=== PATIENT | female | born 1955 | race Caucasian/White ===

== ENCOUNTER 2019-08-24 10:10 | Emergency (ER) | payer MEDICARE ==
--- NOTE | 2019-08-24 11:11 | EDM.PDOC ---
ED HPI GENERAL MEDICAL PROBLEM - General Chief Complaint: Fever Stated Complaint: FLU?? PAST THREE DAYS Time Seen by Provider: 08/24/19 11:00 Source of Information: Reports: Patient History Limitations: Reports: No Limitations - History of Present Illness INITIAL COMMENTS - FREE TEXT/NARRATIVE: 63-year-old female who was last well 4 days ago, for 48 hours she had shaking chills, generalized body aches and a persistent headache. She thought she should be getting significantly better by today on the fourth day, but she still has a persistent cough and nasal congestion so came in to be checked. Still intermittent fevers, no significant nausea or vomiting, no diarrhea. She has a scratchy throat and some ear pressure, however her main symptoms are still cough, headache, generalized body aches and intermittent fever. Rhinitis is getting worse today. Onset: Gradual Duration: Day(s): (4 days) Associated Symptoms: Reports: Chest Pain (From coughing), Cough, Fever/Chills, Headaches, Loss of Appetite, Malaise, Shortness of Breath. Denies: Confusion - Related Data Allergies Allergy/AdvReac Type Severity Reaction Status Date / Time No Known Allergies Allergy Verified 08/24/19 10:30 Home Meds: Home Meds Acetaminophen [Tylenol] 325 mg PO Q6H PRN 08/24/19 [History] Albuterol [Ventolin HFA] 1 inh INH ASDIRECTED PRN 08/24/19 [History] Cholecalciferol (Vitamin D3) [Vitamin D3] 1,000 unit PO DAILY 08/24/19 [History] Diltiazem [Diltiazem XR] 180 mg PO DAILY 08/24/19 [History] Estradiol [Estrace] 0.5 mg PO DAILY 08/24/19 [History] FLUoxetine HCl [Prozac] 20 mg PO BEDTIME 08/24/19 [History] FLUoxetine HCl [Prozac] 40 mg PO DAILY 08/24/19 [History] LORazepam [Ativan] 1 mg PO ASDIRECTED 08/24/19 [History] Montelukast [Singulair] 10 mg PO DAILY 08/24/19 [History] Umeclidinium Brm/Vilanterol Tr [Anoro Ellipta 62.5-25 MCG] 1 each IH DAILY 08/24 [History] Zolpidem [Ambien] 10 mg PO BEDTIME PRN 08/24/19 [History] atorvaSTATin [Lipitor] 20 mg PO BEDTIME 08/24/19 [History] busPIRone [Buspar] 10 mg PO BID 08/24/19 [History] polyethylene glycoL 3350 [MiraLAX] 17 gm PO ASDIRECTED PRN 08/24/19 [History] Past Medical History Cardiovascular History: Reports: Hypertension Respiratory History: Reports: COPD, PE Gastrointestinal History: Reports: Colon Polyp, GERD 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, 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: Psychiatric History: Reports: Anxiety, Panic Attack - Past Surgical History GI Surgical History: Reports: Cholecystectomy Female Surgical History: Reports: Hysterectomy Social & Family History - Tobacco Use Smoking Status *Q: Former Smoker Used Tobacco, but Quit: Yes Month/Year Tobacco Last Used: 2006 - Caffeine Use Caffeine Use: Reports: Coffee - Recreational Drug Use Recreational Drug Use: No ED ROS GENERAL - Review of Systems Review Of Systems: See Below Constitutional: Reports: Fever, Chills, Malaise HEENT: Reports: Ear Pain, Rhinitis, Throat Pain Respiratory: Reports: Shortness of Breath, Cough. Denies: Sputum Cardiovascular: Reports: Chest Pain (From coughing) GI/Abdominal: Denies: Diarrhea, Nausea, Vomiting Skin: Reports: No Symptoms Neurological: Reports: Headache Psychiatric: Reports: No Symptoms ED EXAM, GENERAL - Physical Exam Exam: See Below Exam Limited By: No Limitations General Appearance: Alert, No Apparent Distress Eye Exam: Bilateral Eye: Normal Inspection Ears: Normal TMs Throat/Mouth: Normal Inspection Head: Atraumatic Neck: No: Lymphadenopathy (R), Lymphadenopathy (L) Respiratory/Chest: No Respiratory Distress, Other (A few expiratory wheezes are heard with coughing, otherwise good air movement and normal breath sounds with normal respirations) Cardiovascular: Regular Rate, Rhythm, Tachycardia (Mild tachycardia) Neurological: Alert, Oriented Psychiatric: Normal Affect, Normal Mood Skin Exam: Warm, Dry Course - Vital Signs Last Recorded V/S: Last Vital Signs Temp 100.7 F H 08/24/19 10:44 Pulse 105 H 08/24/19 10:44 Resp 18 08/24/19 10:44 BP 129/64 08/24/19 10:44 Pulse Ox 97 08/24/19 10:44 - Re-Assessments/Exams Free Text/Narrative Re-Assessment/Exam: 08/24/19 11:11 Influenza antigens were obtained 08/24/19 11:30 Influenza A is positive. Expectations were discussed with the patient, she is going to continue with rest, fluids, anti-inflammatories and was given 10 hydrocodone for extra pain control. Continue with her pulmonary medications and return if worsening. Departure - Departure Time of Disposition: 11:44 Disposition: Home, Self-Care 01 Clinical Impression: Influenza A - Discharge Information Instructions: Influenza, Adult Referrals: PCP,None [Primary Care Provider] - Forms: ED Department Discharge Care Plan Goals: Rest, fluids, continue your regular medications and consider a regular dose of ibuprofen or naproxen for headache and body aches. Add stronger pain medications as directed if needed, and return anytime if worsening especially breathing difficulties. Sepsis Event Note - Evaluation Sepsis Screening Result: Possible Sepsis Risk - Focused Exam Vital Signs: Vital Signs Temp Pulse Resp BP Pulse Ox 08/24/19 10:44 100.7 F H 105 H 18 129/64 97 Date Exam was Performed: 08/24/19 Time Exam was Performed: 12:14
== END 2019-08-24 11:44 | disposition home or self-care (01) ==
LOC: JP.ED 10:10
DX: J10.1 Influenza due to other identified influenza virus with other respiratory manifestations (principal); I10 Essential (primary) hypertension; J44.9 Chronic obstructive pulmonary disease, unspecified; K21.9 Gastro-esophageal reflux disease without esophagitis; F41.9 Anxiety disorder, unspecified; Z79.899 Other long term (current) drug therapy; Z87.891 Personal history of nicotine dependence
CPT/HCPCS: 87804; 87804-59; 99283

== ENCOUNTER 2020-05-11 14:12 | Emergency (ER) | payer MEDICARE ==
[2020-05-11] MEDS ORDERED: Lactated Ringers 1,000 ML IV ONE (16:41)
[2020-05-11] MEDS ORDERED: Iopamidol 755 Mg/ML 100 ML Bottle IV SCH (17:00)
[2020-05-11] MEDS ORDERED: Sodium Chloride 0.9% 100 ML IV SCH (17:00)
--- NOTE | 2020-05-11 17:26 | EDM.PDOC ---
ED HPI GENERAL MEDICAL PROBLEM - General Chief Complaint: Respiratory Problem Stated Complaint: HEAVY L LUNG,COPD,POSSIBLE COVID Time Seen by Provider: 05/11/20 16:30 Source of Information: Reports: Patient History Limitations: Reports: No Limitations - History of Present Illness INITIAL COMMENTS - FREE TEXT/NARRATIVE: This is a 64-year-old female presents with concerns of shortness of breath and chest pain. Approximately 10 days ago she was exposed to several family members with COVID-19. Starting several days ago she began to notice cough and shortness of breath accompanied by myalgias and malaise. This morning she developed left-sided pleuritic chest pain. She does have some dyspnea. The pain is not exertional. She has a history of prior PE after a many years ago, is not anticoagulated. She is a longtime smoker but quit over a decade ago. She does report some low-grade fevers. Had some transient swelling of one of the extremities that improved over the last couple days. - Related Data Allergies Allergy/AdvReac Type Severity Reaction Status Date / Time No Known Allergies Allergy Verified 08/24/19 10:30 Home Meds: Home Meds Acetaminophen [Tylenol] 325 mg PO Q6H PRN 08/24/19 [History] Albuterol [Ventolin HFA] 1 inh INH ASDIRECTED PRN 08/24/19 [History] Cholecalciferol (Vitamin D3) [Vitamin D3] 1,000 unit PO DAILY 08/24/19 [History] Diltiazem [Diltiazem XR] 180 mg PO DAILY 08/24/19 [History] FLUoxetine HCl [Prozac] 20 mg PO BEDTIME 08/24/19 [History] FLUoxetine HCl [Prozac] 40 mg PO DAILY 08/24/19 [History] LORazepam [Ativan] 1 mg PO ASDIRECTED 08/24/19 [History] Montelukast [Singulair] 10 mg PO DAILY 08/24/19 [History] Umeclidinium Brm/Vilanterol Tr [Anoro Ellipta 62.5-25 MCG] 1 each IH DAILY 08/24/19 [History] atorvaSTATin [Lipitor] 20 mg PO BEDTIME 08/24/19 [History] busPIRone [Buspar] 10 mg PO BID 08/24/19 [History] estradioL [Estrace] 0.5 mg PO DAILY 08/24/19 [History] polyethylene glycoL 3350 [MiraLAX] 17 gm PO ASDIRECTED PRN 08/24/19 [History] traZODone HCl [Trazodone HCl] 50 mg PO BEDTIME 05/11/20 [History] Past Medical History Cardiovascular History: Reports: Hypertension Respiratory History: Reports: COPD, PE Gastrointestinal History: Reports: Colon Polyp, GERD 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, 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: Psychiatric History: Reports: Anxiety, Panic Attack - Past Surgical History GI Surgical History: Reports: Cholecystectomy Female Surgical History: Reports: Hysterectomy Musculoskeletal Surgical History: Reports: Knee Replacement Other Musculoskeletal Surgeries/Procedures:: bilateral knee replacement Social & Family History - Tobacco Use Tobacco Use Status *Q: Never Tobacco User - Caffeine Use Caffeine Use: Reports: None - Recreational Drug Use Recreational Drug Use: No ED ROS GENERAL - Review of Systems Review Of Systems: See Below Constitutional: Reports: Fever HEENT: Reports: No Symptoms Respiratory: Reports: Shortness of Breath, Pleuritic Chest Pain Cardiovascular: Reports: Chest Pain Endocrine: Reports: No Symptoms GI/Abdominal: Reports: No Symptoms : Reports: No Symptoms Musculoskeletal: Reports: Muscle Pain Skin: Reports: No Symptoms Neurological: Reports: No Symptoms Psychiatric: Reports: No Symptoms Hematologic/Lymphatic: Reports: No Symptoms Immunologic: Reports: No Symptoms ED EXAM, GENERAL - Physical Exam Exam: See Below Exam Limited By: No Limitations General Appearance: Alert, No Apparent Distress Ears: Normal External Exam Nose: Normal Inspection Throat/Mouth: Normal Inspection Head: Atraumatic, Normocephalic Neck: Normal Inspection Respiratory/Chest: Lungs Clear. No: Wheezing Cardiovascular: Regular Rate, Rhythm, No Murmur GI/Abdominal: Soft, Non-Tender, No Distention Back Exam: Normal Inspection Extremities: Normal Inspection, No Pedal Edema Neurological: Alert, Oriented, Normal Cognition Psychiatric: Normal Affect, Normal Mood Skin Exam: Warm, Dry Course - Vital Signs Last Recorded V/S: Last Vital Signs Temp 36.2 C 05/11/20 15:19 Pulse 71 05/11/20 18:27 Resp 16 05/11/20 18:27 BP 152/85 H 05/11/20 18:27 Pulse Ox 97 05/11/20 18:27 - Orders/Labs/Meds Orders: Active Orders 24 hr Category Date Time Status EKG Documentation Completion [RC] ASDIRECTED Care 05/11/20 16:24 Active EKG 12 Lead [EK] Routine Ther 05/11/20 16:24 Ordered Labs: Laboratory Tests 05/11/20 05/11/20 Range/Units 16:40 16:40 WBC 4.1 L (4.5-11.0) K/uL RBC 4.43 (3.30-5.50) M/uL Hgb 10.4 L (12.0-15.0) g/dL Hct 33.6 L (36.0-48.0) % MCV 76 L (80-98) fL MCH 24 L (27-31) pg MCHC 31 L (32-36) % Plt Count 226 (150-400) K/uL Sodium 135 L (140-148) mmol/L Potassium 4.1 (3.6-5.2) mmol/L Chloride 101 (100-108) mmol/L Carbon Dioxide 25 (21-32) mmol/L Anion Gap 13.1 (5.0-14.0) mmol/L BUN 12 (7-18) mg/dL Creatinine 0.8 (0.6-1.0) mg/dL Est Cr Clr Drug Dosing 63.93 mL/min Estimated GFR (MDRD) > 60 (>60) Glucose 92 (74-106) mg/dL Calcium 8.5 (8.5-10.1) mg/dL Meds: Medications Discontinued Medications Generic Name Dose Route Start Last Admin Trade Name Freq PRN Reason Stop Dose Admin Lactated Ringer's 1,000 mls @ 999 mls/hr 05/11/20 16:41 05/11/20 16:54 Ringers, Lactated IV 05/11/20 17:41 999 mls/hr BOLUS ONE Administration Sodium Chloride 100 mls @ 4 mls/sec 05/11/20 17:00 05/11/20 17:27 Normal Saline IV 05/11/20 17:01 4 mls/sec ASDIRECTED STEVE Administration Iopamidol 100 ml 05/11/20 17:00 05/11/20 17:27 Isovue-370 (76%) IV 05/11/20 17:01 100 ml . DIRECTED STEVE Administration - Re-Assessments/Exams Free Text/Narrative Re-Assessment/Exam: This is a 64-year-old female history of COPD and prior PE, not on anticoagulation, who presents with concerns of dyspnea and chest pain. This is in the setting of constellation of symptoms consistent with likely viral illness, including myalgias, fatigue, headache, cough, shortness of breath. However, she does describe sudden onset left-sided pleuritic chest pain today, and has a history of prior PE. Her vitals do look stable. She is stable from a respiratory standpoint. I think her symptoms are very likely due to COVID-19 or another viral infection. However, given the sudden onset pleuritic chest pain and her history of PE we are obtaining CT PE scan of the chest. EKG is nonischemic. Basic lab work is unremarkable. 05/11/20 17:30 05/11/20 17:31 Free Text/Narrative Re-Assessment/Exam: CT for PE is negative. Also does not show any infiltrate or evidence of significant COVID-19 pulmonary infection. Patient remained stable during her time in the ER. She is safe for discharge with symptomatic cares. 05/11/20 18:45 Departure - Departure Time of Disposition: 18:45 Disposition: Home, Self-Care 01 Clinical Impression: Viral illness - Discharge Information *PRESCRIPTION DRUG MONITORING PROGRAM REVIEWED*: No *COPY OF PRESCRIPTION DRUG MONITORING REPORT IN PATIENT GAEL: No Referrals: PCP,None [Primary Care Provider] - Forms: ED Department Discharge Additional Instructions: Your work-up today in the ER showed no evidence of blood clot in your lung or significant infection in your lungs on your CT scan. You should continue to isolate until your Covid test returns. Overall your symptoms are still consistent with likely viral illness. As discussed if you develop worsening shortness of breath or feel that your breathing is unstable please return to the emergency room. Thank you for letting us care for you today. Sepsis Event Note (ED) - Evaluation Sepsis Screening Result: No Definite Risk - Focused Exam Vital Signs: Vital Signs Temp Pulse Resp BP Pulse Ox 05/11/20 18:27 71 16 152/85 H 97 05/11/20 16:50 70 17 137/72 96 05/11/20 16:23 72 14 117/55 L 94 L 05/11/20 15:19 36.2 C 84 16 142/60 H 96 05/11/20 15:09 36.2 C 84 16 142/60 H 96 - My Orders Last 24 Hours: My Active Orders 05/11/20 16:24 EKG Documentation Completion [RC] ASDIRECTED EKG 12 Lead [EK] Routine - Assessment/Plan Last 24 Hours: My Active Orders 05/11/20 16:24 EKG Documentation Completion [RC] ASDIRECTED EKG 12 Lead [EK] Routine
--- NOTE | 2020-05-11 18:31 | CRLCT ---
INDICATION: Chest pain, cough TECHNIQUE: CT chest with i.v. contrast using pulmonary angiographic technique. Coronal and sagittal reformats were obtained. CONTRAST: 100 mL Isovue COMPARISON: None FINDINGS: Cardiovascular: The pulmonary arteries are unremarkable in enhancement with no evidence of acute pulmonary embolism. The heart has an unremarkable appearance and size. No sign of aneurysm in the thoracic aorta. Mediastinum: No mass or adenopathy seen. Lung: Centrilobular emphysema is present and most prominent in the apices. Dependent ground-glass atelectasis is seen in both lungs. Focal air trapping is seen in the posterior right apex, posterior base of the right upper lobe, and superior segment of the right lower lobe. A nonspecific focus of ill-defined ground-glass opacity seen in the right upper lobe on image 45. Pleura and pericardium: No sign of pleural effusion seen. No significant pericardial effusion is present. Chest wall and axilla: No mass or adenopathy seen. Bone: Unremarkable for age. Upper abdomen: There is moderate intra and extrahepatic biliary ductal dilatation that is partially visualized with the common hepatic duct measuring 2 cm. A small fat containing left Bochdalek diaphragmatic hernia is noted. IMPRESSIONS: 1. No CT evidence of acute pulmonary emboli seen. 2. There is moderate intra and extrahepatic biliary ductal dilatation that is partially visualized with the common hepatic duct measuring 2 cm. Comparison with any prior outside imaging is recommended. If these cannot be obtained, follow up MRCP evaluation is warranted. Dictated by Fredrick Hanson MD @ 05/11/2020 6:28:44 PM Please note that all CT scans at this facility use dose modulation, iterative reconstruction, and/or weight-based dosing when appropriate to reduce radiation dose to as low as reasonably achievable. Dictated by: Fredrick Hanson MD @ 05/11/2020 18:28:48 (Electronically Signed)
== END 2020-05-11 19:00 | disposition home or self-care (01) ==
LOC: JP.ED 14:12
DX: B34.9 Viral infection, unspecified (principal); I10 Essential (primary) hypertension; J44.9 Chronic obstructive pulmonary disease, unspecified; F41.9 Anxiety disorder, unspecified; Z79.899 Other long term (current) drug therapy
CPT/HCPCS: 36415; 71275; 80048; 85027; 93005; 93010; 99284-25; J7120; Q9967

== ENCOUNTER 2020-05-17 14:08 | Emergency (ER) | payer MEDICARE ==
[2020-05-17] MEDS ORDERED: Acetaminophen 325 MG Tab PO PRN (14:55)
[2020-05-17] MEDS ORDERED: Codeine/guaiFENesin 100mg-10 MG/5 ML Syrup 10 ML Cup PO ONE (14:55)
--- NOTE | 2020-05-17 14:57 | EDM.PDOC ---
ED HPI GENERAL MEDICAL PROBLEM - General Chief Complaint: Respiratory Problem Stated Complaint: POSITIVE COVID Time Seen by Provider: 05/17/20 14:54 Source of Information: Reports: Patient, RN Notes Reviewed History Limitations: Reports: No Limitations - History of Present Illness INITIAL COMMENTS - FREE TEXT/NARRATIVE: 64-year-old female presents emergency department a complaint of cough shortness of breath, she is positive COVID-19 has been 6-7 days into the illness. She is taking care of a sister who is just was admitted to hospital today COVID-19 pneumonia. Her biggest complaint is her cough Chest Pain Score (Numeric/FACES): 7 - Related Data Allergies Allergy/AdvReac Type Severity Reaction Status Date / Time tramadol Allergy Hallucinati Verified 05/17/20 14:51 ons Home Meds: Home Meds Acetaminophen [Tylenol] 325 mg PO Q6H PRN 08/24/19 [History] Albuterol [Ventolin HFA] 1 inh INH ASDIRECTED PRN 08/24/19 [History] Cholecalciferol (Vitamin D3) [Vitamin D3] 1,000 unit PO DAILY 08/24/19 [History] Diltiazem [Diltiazem XR] 180 mg PO DAILY 08/24/19 [History] FLUoxetine HCl [Prozac] 20 mg PO BEDTIME 08/24/19 [History] FLUoxetine HCl [Prozac] 40 mg PO DAILY 08/24/19 [History] LORazepam [Ativan] 1 mg PO ASDIRECTED 08/24/19 [History] Montelukast [Singulair] 10 mg PO DAILY 08/24/19 [History] Umeclidinium Brm/Vilanterol Tr [Anoro Ellipta 62.5-25 MCG] 1 each IH DAILY 08/24/19 [History] atorvaSTATin [Lipitor] 20 mg PO BEDTIME 08/24/19 [History] busPIRone [Buspar] 10 mg PO BID 08/24/19 [History] estradioL [Estrace] 0.5 mg PO DAILY 08/24/19 [History] polyethylene glycoL 3350 [MiraLAX] 17 gm PO ASDIRECTED PRN 08/24/19 [History] traZODone HCl [Trazodone HCl] 50 mg PO BEDTIME 05/11/20 [History] Past Medical History Cardiovascular History: Reports: Hypertension Respiratory History: Reports: COPD, PE Gastrointestinal History: Reports: Colon Polyp, GERD 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, 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: Psychiatric History: Reports: Anxiety, Panic Attack - Past Surgical History GI Surgical History: Reports: Cholecystectomy Female Surgical History: Reports: Hysterectomy Musculoskeletal Surgical History: Reports: Knee Replacement Other Musculoskeletal Surgeries/Procedures:: bilateral knee replacement Social & Family History - Tobacco Use Tobacco Use Status *Q: Former Tobacco User Used Tobacco, but Quit: Yes Month/Year Tobacco Last Used: 0 - Caffeine Use Caffeine Use: Reports: Coffee - Recreational Drug Use Recreational Drug Use: No ED ROS GENERAL - Review of Systems Review Of Systems: See Below Constitutional: Reports: Fever, Chills, Weakness HEENT: Reports: No Symptoms Respiratory: Reports: Shortness of Breath, Cough Cardiovascular: Reports: Dyspnea on Exertion GI/Abdominal: Reports: No Symptoms : Reports: No Symptoms ED EXAM, GENERAL - Physical Exam Exam: See Below Exam Limited By: No Limitations General Appearance: Alert, WD/WN, No Apparent Distress Respiratory/Chest: No Respiratory Distress, Lungs Clear, Normal Breath Sounds, No Accessory Muscle Use, Chest Non-Tender Cardiovascular: Regular Rate, Rhythm, No Murmur GI/Abdominal: Soft, Non-Tender Course - Vital Signs Last Recorded V/S: Last Vital Signs Temp 98.6 F 05/17/20 16:15 Pulse 86 05/17/20 16:15 Resp 18 05/17/20 16:15 BP 141/70 H 05/17/20 16:15 Pulse Ox 95 05/17/20 16:15 - Orders/Labs/Meds Orders: Active Orders 24 hr Category Date Time Status Acetaminophen [TylenoL] Med 05/17/20 14:55 Active 650 mg PO Q4H PRN Isolation [COMM] Stat Oth 05/17/20 14:55 Ordered Medication Orders Acetaminophen (Tylenol) 650 mg PO Q4H PRN PRN Reason: Fever Greater Than 101 Labs: Laboratory Tests 05/17/20 05/17/20 05/17/20 Range/Units 15:25 15:25 15:25 WBC 5.8 (4.5-11.0) K/uL RBC 4.85 (3.30-5.50) M/uL Hgb 11.2 L (12.0-15.0) g/dL Hct 35.9 L (36.0-48.0) % MCV 74 L (80-98) fL MCH 23 L (27-31) pg MCHC 31 L (32-36) % Plt Count 268 (150-400) K/uL Neut % (Auto) 71 H (36-66) % Lymph % (Auto) 15 L (24-44) % [place] % (Auto) 14 H (2-6) % Eos % (Auto) 0 L (2-4) % Baso % (Auto) 0 (0-1) % D-Dimer, Quantitative 535.05 H (0.0-500.0) ng/mL Sodium (140-148) mmol/L Potassium (3.6-5.2) mmol/L Chloride (100-108) mmol/L Carbon Dioxide (21-32) mmol/L Anion Gap (5.0-14.0) mmol/L BUN (7-18) mg/dL Creatinine (0.6-1.0) mg/dL Est Cr Clr Drug Dosing mL/min Estimated GFR (MDRD) (>60) Glucose (74-106) mg/dL Lactic Acid (0.4-2.0) mmol/L Calcium (8.5-10.1) mg/dL Ferritin 26 (8-388) ng/ml Total Bilirubin (0.2-1.0) mg/dL Direct Bilirubin (0.0-0.2) mg/dL Indirect Bilirubin AST (15-37) U/L ALT (12-78) U/L Alkaline Phosphatase (46-116) U/L Lactate Dehydrogenase (82-234) U/L C-Reactive Protein (0.0-0.3) mg/dL Total Protein (6.4-8.2) g/dL Albumin (3.4-5.0) g/dL Globulin (2.3-3.5) g/dL Albumin/Globulin Ratio (1.2-2.2) Procalcitonin ng/mL 05/17/20 05/17/20 05/17/20 Range/Units 15:25 15:25 15:25 WBC (4.5-11.0) K/uL RBC (3.30-5.50) M/uL Hgb (12.0-15.0) g/dL Hct (36.0-48.0) % MCV (80-98) fL MCH (27-31) pg MCHC (32-36) % Plt Count (150-400) K/uL Neut % (Auto) (36-66) % Lymph % (Auto) (24-44) % [place] % (Auto) (2-6) % Eos % (Auto) (2-4) % Baso % (Auto) (0-1) % D-Dimer, Quantitative (0.0-500.0) ng/mL Sodium 136 L (140-148) mmol/L Potassium 3.7 (3.6-5.2) mmol/L Chloride 99 L (100-108) mmol/L Carbon Dioxide 25 (21-32) mmol/L Anion Gap 15.7 H (5.0-14.0) mmol/L BUN 14 (7-18) mg/dL Creatinine 1.1 H (0.6-1.0) mg/dL Est Cr Clr Drug Dosing 46.49 mL/min Estimated GFR (MDRD) 50 L (>60) Glucose 98 (74-106) mg/dL Lactic Acid 1.9 (0.4-2.0) mmol/L Calcium 8.8 (8.5-10.1) mg/dL Ferritin (8-388) ng/ml Total Bilirubin 0.2 (0.2-1.0) mg/dL Direct Bilirubin 0.12 (0.0-0.2) mg/dL Indirect Bilirubin 0.08 AST 26 (15-37) U/L ALT 40 (12-78) U/L Alkaline Phosphatase 87 (46-116) U/L Lactate Dehydrogenase 164 (82-234) U/L C-Reactive Protein 2.49 H (0.0-0.3) mg/dL Total Protein 7.0 (6.4-8.2) g/dL Albumin 3.1 L (3.4-5.0) g/dL Globulin 3.9 H (2.3-3.5) g/dL Albumin/Globulin Ratio 0.8 L (1.2-2.2) Procalcitonin < 0.05 ng/mL Meds: Medications Generic Name Dose Route Start Last Admin Trade Name Freq PRN Reason Stop Dose Admin Acetaminophen 650 mg 05/17/20 14:55 Tylenol PO Q4H PRN Fever Greater Than 101 Discontinued Medications Generic Name Dose Route Start Last Admin Trade Name Freq PRN Reason Stop Dose Admin Guaifenesin/Codeine Phosphate 10 ml 05/17/20 14:55 05/17/20 16:15 Robitussin Ac PO 05/17/20 14:56 10 ml ONETIME ONE Administration Departure - Departure Time of Disposition: 16:48 Disposition: Home, Self-Care 01 Condition: Fair Clinical Impression: COVID-19, Pneumonia due to COVID-19 virus - Discharge Information Instructions: COVID-19: How to Protect Yourself and Others - CDC, COVID-19 Referrals: PCP,None [Primary Care Provider] - Forms: ED Department Discharge Additional Instructions: Continue with your regular medications, try the Robitussin-AC for the cough, please followup with your primary care provider in 3-5 days if not better, please call return to the emergency department with worsening of symptoms. Sepsis Event Note (ED) - Evaluation Sepsis Screening Result: No Definite Risk - Focused Exam Vital Signs: Vital Signs Temp Pulse Resp BP Pulse Ox 05/17/20 16:15 98.6 F 86 18 141/70 H 95 05/17/20 14:49 98.4 F 88 18 101/59 L 96 - My Orders Last 24 Hours: My Active Orders 05/17/20 14:55 Acetaminophen [TylenoL] 650 mg PO Q4H PRN Isolation [COMM] Stat - Assessment/Plan Last 24 Hours: My Active Orders 05/17/20 14:55 Acetaminophen [TylenoL] 650 mg PO Q4H PRN Isolation [COMM] Stat Plan: Assessment Acuity = acute Site and laterality = COVID-19 pneumonia Etiology = COVID-19 Manifestations = cough Location of injury = Home Lab values = hemoglobin low 11.2 consistent microchromic anemia D-dimer elevated 535 consistent with inflammatory marker creatinine elevated 1.1 consistent with chronic renal failure stage G3 a lactic acid normal 1.9 ferritin normal at 26 LDH normal 1-94 CRP slightly elevated 2.49 procalcitonin is negative x-ray consistent with Covid type pattern Plan She had good relief with Robitussin-AC provided for the cough discharged home with 120 mL 10 mL every 6 hours as needed follow-up primary care 3 to 5 days if not better This note was dictated using [employer] voice recognition software please call with any questions on syntax or grammar.
--- NOTE | 2020-05-17 15:38 | CR ---
CHEST: Portable 05/17/2020 at 3:13 PM CLINICAL HISTORY:Respiratory failure COMPARISON:CT 05/11/2020 FINDINGS: There is minimal ill-defined patchy densities in both lung art. Patient had some groundglass opacification throughout the lungs on the previous CT. No new infiltrate is seen. There are no effusions. IMPRESSION: Faint patchy opacities bilaterally likely similar to the CT. This suggests a mild pneumonitis
== END 2020-05-17 17:18 | disposition home or self-care (01) ==
LOC: JP.ED 14:08
DX: U07.1 COVID-19 (principal); J12.89 Other viral pneumonia; I10 Essential (primary) hypertension; J44.9 Chronic obstructive pulmonary disease, unspecified; F41.9 Anxiety disorder, unspecified; Z87.891 Personal history of nicotine dependence; Z88.5 Allergy status to narcotic agent; Z79.899 Other long term (current) drug therapy
CPT/HCPCS: 36415; 71045; 80048; 80076; 82728; 83605; 83615; 84145; 85025; 85379; 86140; 99285; A9270

== ENCOUNTER 2020-09-12 13:27 | Emergency (ER) | payer MEDICARE ==
--- NOTE | 2020-09-12 13:48 | EDM.PDOC ---
ED HPI GENERAL MEDICAL PROBLEM - General Chief Complaint: Chest Pain Stated Complaint: CHEST IS HEAVY FEELING WITH LEFT SIDE ARM SORENESS Time Seen by Provider: 09/12/20 13:47 Source of Information: Reports: Patient, Old Records, RN History Limitations: Reports: No Limitations - History of Present Illness INITIAL COMMENTS - FREE TEXT/NARRATIVE: 65 yo female presents with mild chest heaviness since yesterday that is a little worse today. No associated sx's. She has mild SOB chronically from COPD and this is not worse than normal. No cough or fever. Recently did have Covid. House cleaning did not make her chest tightness worse. No calf pain or LE edema. She had some L shoulder discomfort yesterday that was worse with movement of that L arm. She says it feels like she is coming down with a cold. Onset: Gradual Onset Date: 09/11/20 Duration: Hour(s):, Getting Worse Location: Reports: Chest Quality: Reports: Pressure (minimal) Severity: Mild Improves with: Reports: None Worsens with: Reports: None Context: Reports: Other (See HPI) Associated Symptoms: Reports: No Other Symptoms Treatments [employer]: Reports: Other (see below) (none) Chest Pain Score (Numeric/FACES): 6 - Related Data Allergies Allergy/AdvReac Type Severity Reaction Status Date / Time tramadol Allergy Hallucinati Verified 09/12/20 13:47 ons Home Meds: Home Meds Acetaminophen [Tylenol] 325 mg PO Q6H PRN 08/24/19 [History] Albuterol [Ventolin HFA] 1 inh INH ASDIRECTED PRN 08/24/19 [History] Cholecalciferol (Vitamin D3) [Vitamin D3] 1,000 unit PO DAILY 08/24/19 [History] Diltiazem [Diltiazem XR] 180 mg PO DAILY 08/24/19 [History] FLUoxetine HCl [Prozac] 20 mg PO BEDTIME 08/24/19 [History] FLUoxetine HCl [Prozac] 40 mg PO DAILY 08/24/19 [History] LORazepam [Ativan] 1 mg PO ASDIRECTED 08/24/19 [History] Montelukast [Singulair] 10 mg PO DAILY 08/24/19 [History] atorvaSTATin [Lipitor] 20 mg PO BEDTIME 08/24/19 [History] busPIRone [Buspar] 7.5 mg PO BID 08/24/19 [History] estradioL [Estrace] 0.5 mg PO DAILY 08/24/19 [History] polyethylene glycoL 3350 [MiraLAX] 17 gm PO ASDIRECTED PRN 08/24/19 [History] traZODone HCl [Trazodone HCl] 50 mg PO BEDTIME 05/11/20 [History] Ferrous Sulfate [Iron] 650 mg PO DAILY 09/12/20 [History] Tiotropium [Spiriva Handihaler] 1 cap INH DAILY 09/12/20 [History] Past Medical History Cardiovascular History: Reports: Afib, Hypertension Respiratory History: Reports: COPD, PE Gastrointestinal History: Reports: Colon Polyp, GERD 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, Recurrent [employer]CH[employer] INSTRU[employer] History: Reports: Psychiatric History: Reports: Anxiety, Panic Attack - Past Surgical History GI Surgical History: Reports: Cholecystectomy Female Surgical History: Reports: Hysterectomy Musculoskeletal Surgical History: Reports: Knee Replacement Other Musculoskeletal Surgeries/Procedures:: bilateral knee replacement Social & Family History - Caffeine Use Caffeine Use: Reports: Coffee ED ROS GENERAL - Review of Systems Review Of Systems: See Below Constitutional: Reports: No Symptoms HEENT: Reports: No Symptoms Respiratory: Reports: Shortness of Breath (minimal, not worse than normal). D enies: Wheezing, Pleuritic Chest Pain, Cough, Sputum, Hemoptysis Cardiovascular: Reports: Chest Pain (mild heaviness), Dyspnea on Exertion (mild, chronic). Denies: Edema, Lightheadedness, Palpitations GI/Abdominal: Reports: No Symptoms : Reports: No Symptoms Musculoskeletal: Reports: No Symptoms Skin: Reports: No Symptoms Neurological: Reports: No Symptoms ED EXAM, GENERAL - Physical Exam Exam: See Below Exam Limited By: No Limitations General Appearance: Alert, WD/WN, No Apparent Distress Eye Exam: Bilateral Eye: Normal Inspection Ears: Normal External Exam, Normal Canal, Hearing Grossly Normal Ear Exam: Bilateral Ear: Auricle Normal, Canal Normal Nose: Normal Inspection, No Blood Throat/Mouth: Normal Inspection, Normal Lips, Normal Oropharynx, Normal Voice, No Airway Compromise Head: Atraumatic, Normocephalic Neck: Normal Inspection Respiratory/Chest: No Respiratory Distress, Lungs Clear, Normal Breath Sounds, No Accessory Muscle Use, Chest Non-Tender Cardiovascular: Regular Rate, Rhythm, No Edema GI/Abdominal: Normal Bowel Sounds, Soft, Non-Tender, No Distention Back Exam: Normal Inspection. No: CVA Tenderness (R), CVA Tenderness (L) Extremities: Normal Inspection, Normal Range of Motion, Non-Tender, No Pedal Edema Neurological: Alert, Oriented, CN II-XII Intact, Normal Cognition, No Motor/Sensory Deficits Psychiatric: Normal Affect, Normal Mood Skin Exam: Warm, Dry, Intact, Normal Color, No Rash #1 Interpretation EKG Date: 09/12/20 Time: 13:40 Rhythm: NSR Rate (Beats/Min): 73 [place]: Normal P-Wave: Present QRS: Normal ST-T: Normal QT: Normal Comparison: No Change Course - Vital Signs Last Recorded V/S: Last Vital Signs Temp 36.8 C 09/12/20 13:44 Pulse 69 09/12/20 13:44 Resp 10 L 09/12/20 13:44 BP 130/68 09/12/20 13:44 Pulse Ox 97 09/12/20 13:44 - Orders/Labs/Meds Orders: Active Orders 24 hr Category Date Time Status Cardiac Monitoring [RC] .As Directed Care 09/12/20 13:33 Active EKG Documentation Completion [RC] ASDIRECTED Care 09/12/20 13:33 Active EKG 12 Lead [EK] Routine Ther 09/12/20 13:33 Ordered Labs: Laboratory Tests 09/12/20 Range/Units 13:57 Troponin I < 0.017 (0.000-0.056) ng/mL Meds: Medications Discontinued Medications Generic Name Dose Route Start Last Admin Trade Name Amauri PRN Reason Stop Dose Admin Acetaminophen 1,000 mg 09/12/20 13:58 Acetaminophen 500 Mg Tab PO 09/12/20 13:59 ONETIME ONE Aspirin 324 mg 09/12/20 13:58 Aspirin 81 Mg Tab.Chew PO 09/12/20 13:59 ONETIME ONE Departure - Departure Time of Disposition: 14:54 Disposition: Home, Self-Care 01 Condition: Good Clinical Impression: Nonspecific chest pain Instructions: Nonspecific Chest Pain, Adult, [id number] Referrals: PCP,None [Primary Care Provider] - Forms: ED Department Discharge Additional Instructions: Take a baby aspirin daily in addition to your usual medications. Add acetaminophen up to 1000 mg every 6 hrs as needed for pain relief. Recheck if worse or not improving. Sepsis Event Note (ED) - Focused Exam Vital Signs: Vital Signs Temp Pulse Resp BP Pulse Ox 09/12/20 13:44 36.8 C 69 10 L 130/68 97 - My Orders Last 24 Hours: My Active Orders 09/12/20 13:33 Cardiac Monitoring [RC] .As Directed EKG Documentation Completion [RC] ASDIRECTED EKG 12 Lead [EK] Routine - Assessment/Plan Last 24 Hours: My Active Orders 09/12/20 13:33 Cardiac Monitoring [RC] .As Directed EKG Documentation Completion [RC] ASDIRECTED EKG 12 Lead [EK] Routine
[2020-09-12] MEDS: Aspirin 81 MG Tab.Chew PO ONE (14:58)
[2020-09-12] MEDS: Acetaminophen 500 MG Tab PO ONE (14:58)
== END 2020-09-12 15:29 | disposition home or self-care (01) ==
LOC: JP.ED 13:27
DX: R07.9 Chest pain, unspecified (principal); I48.91 Unspecified atrial fibrillation; I10 Essential (primary) hypertension; J44.9 Chronic obstructive pulmonary disease, unspecified; Z86.711 Personal history of pulmonary embolism; Z88.5 Allergy status to narcotic agent; Z79.899 Other long term (current) drug therapy
CPT/HCPCS: 36415; 84484; 93005; 99284; 99285; A9270